=== PATIENT | female | born 1990 | race Caucasian/White ===

== ENCOUNTER 2024-02-04 06:04 | Emergency (ER) | payer OTHER, SELFPAY ==
[2024-02-04] VITALS (12 sets, daily range): BP systolic 108–125; BP diastolic 70–93; PULSE 91–122
--- NOTE | 2024-02-04 06:38 | ED.GENMED ---
History of Present Illness
<Leah Grewal DO, Resident - Last Filed: 02/04/24 11:09>
General
Chief Complaint: Dehydration Symptoms
Source: patient and records
Exam Limitations: none
Time Seen by Provider: 02/04/24 06:37
Nursing documentation reviewed up to this point in time: agreed with
History of Present Illness
History of Present Illness:
Ms. Micheline Juarez is a 33 yo female from [place] with a recent diarrheal illness presenting with feeling dehydrated. Stool sample on 01/28 positive for Vibrio cholera, E. coli, Vibrio sp., and Campylobacter jejuni. Per pt, CDC is aware. Suspects
oysters as source. Was given one dose of 1g azithromycin on 01/28. Diarrhea lasted for 8 days and is now resolved. Pt had 2-3 'non-diarrhea' bowel movements since. Traveled here 01/31 to visit parents. Pt reports palpitations, lightheadedness,
dizziness, headache, fatigue, sore throat x1 day, weakness, and b/l leg cramping. She denies CP, SOB, cough, abdominal pain, N/V, parasthesias.
Has been tolerating chicken noodle soup, crackers, gatorade, and liquid IV.
Past History
<Leah Grewal DO, Resident - Last Filed: 02/04/24 11:09>
Past History
ED Past Medical History: None
Review of Systems
<Leah Grewal DO, Resident - Last Filed: 02/04/24 11:09>
Review of Systems
Allergies reviewed?: Yes
All Other Systems: ROS reviewed and negative except as documented in HPI and ROS
Phy Exam
<Leah Grewal DO, Resident - Last Filed: 02/04/24 11:09>
General Physical Exam
General Presentation: well appearing
General age: appears stated age
General Skin: warm and dry
General Habitus: normal
General Mental: alert
General Hydration: appears well hydrated (good skin turgor, moist mucous membranes)
Cardiovascular Exam
Cardiovascular Exam: no edema, no gallop, no murmur, normal peripheral pulses and tachycardia
Heart Sounds: normal
Pulmonary Exam
Pulmonary Exam: lungs clear, no respiratory distress, no rales, no rhonchi, no wheezing and no cough
Gastrointestinal Exam
Gastrointestinal Exam: normal bowel sounds, soft, no organomegaly, no pulsatile mass and tender (periumbilical)
Neurological Exam
Neurological Exam: alert, oriented x3, no motor deficits and normal reflexs
Musculoskeletal Exam
Musculoskeletal Exam: no edema
Skin Exam
Skin Exam: normal color, warm/dry and no rash
Psychiatric Exam
Psychiatric Exam: normal mood/affect
Course
<Leah Grewal DO, Resident - Last Filed: 02/04/24 11:09>
Orders/Labs/Results
Orders:
Orders
02/04/24 06:18
EKG [Electrocardiogram (*1)] Urgent
Reason for Study: Palpitations
EKG- Treatment ONCE
02/04/24 06:56
UA Reflex to Culture [Urinalysis Reflex To Culture] Urgent
Date Specimen was Collected: 02/04/24
Time Specimen was Collected: 06:17
02/04/24 07:44
Orthostatic VS- Treatment ONCE
0.9% Sodium Chloride 1000 ml [Nss] 1,000 ml IV BOLUS
02/04/24 07:46
Complete Blood Count/No Diff Urgent
Comprehensive Metabolic Panel Urgent
02/04/24 08:41
0.9% Sodium Chloride 1000 ml [Nss] 1,000 ml IV BOLUS
02/04/24 10:13
Orthostatic Vital Signs As Directed
Orthostatic VS Frequency: Now
Abnormal Lab Results
02/04/24
07:46
WBC 12.3 H 10^3/uL
(4.8-10.8)
BUN 5 L mg/dl
(7-17)
02/04/24 07:46
02/04/24 07:46
Vital Signs
Initial and Last Documented VS:
Initial Vital Signs
Temp Pulse Resp BP Pulse Ox
100.1 F 130 18 125/86 97
02/04/24 06:08 02/04/24 06:08 02/04/24 06:08 02/04/24 06:08 02/04/24 06:08
Last Documented Vital Signs
Temp Pulse Resp BP Pulse Ox
98.1 F 86 17 117/86 99
02/04/24 08:52 02/04/24 10:30 02/04/24 10:30 02/04/24 10:21 02/04/24 10:30
<Orlando Thomas MD - Last Filed: 02/05/24 10:03>
Orders/Labs/Results
Orders:
Orders
02/04/24 06:18
EKG [Electrocardiogram (*1)] Urgent
Reason for Study: Palpitations
EKG- Treatment ONCE
02/04/24 06:56
UA Reflex to Culture [Urinalysis Reflex To Culture] Urgent
Date Specimen was Collected: 02/04/24
Time Specimen was Collected: 06:17
02/04/24 07:44
Orthostatic VS- Treatment ONCE
0.9% Sodium Chloride 1000 ml [Nss] 1,000 ml IV BOLUS
02/04/24 07:46
Complete Blood Count/No Diff Urgent
Comprehensive Metabolic Panel Urgent
02/04/24 08:41
0.9% Sodium Chloride 1000 ml [Nss] 1,000 ml IV BOLUS
02/04/24 10:13
Orthostatic Vital Signs As Directed
Orthostatic VS Frequency: Now
Abnormal Lab Results
02/04/24
07:46
WBC 12.3 H 10^3/uL
(4.8-10.8)
BUN 5 L mg/dl
(7-17)
02/04/24 07:46
02/04/24 07:46
Vital Signs
Initial and Last Documented VS:
Initial Vital Signs
Temp Pulse Resp BP Pulse Ox
100.1 F 130 18 125/86 97
02/04/24 06:08 02/04/24 06:08 02/04/24 06:08 02/04/24 06:08 02/04/24 06:08
Last Documented Vital Signs
Temp Pulse Resp BP Pulse Ox
98.1 F 86 17 117/86 99
02/04/24 08:52 02/04/24 10:30 02/04/24 10:30 02/04/24 10:21 02/04/24 10:30
<Leah Grewal DO, Resident - Last Filed: 02/04/24 11:09>
MDM/Problems Addressed
Differential Diagnosis Includes:
cardiac arrhythmia, anemia, hyponatremia, guillain-barre syndrome
MDM/Problems Addressed:
Ms. Micheline Juarez is a 33 yo female with a recently treated diarrheal illness presenting with feeling dehydrated.
Cardiac arrhythmia unlikely due to NSR on ECG.
Concern for anemia, hyponatremia is low due to Hb 14, Na 141.
Guillain-barre syndrome is less likely at this time due to preserved DTRs, muscle strength, and sensation.
Pt's symptoms improved with 2L normal saline. On arrival, she was tachycardic (130), but her heart rate has improved with IV fluids to 93 bpm.
<Leah Grewal DO, Resident - Last Filed: 02/04/24 11:09>
*Pulse Oximetry
Patient hypoxic: no
*EKG
Interpreted by ED Provider?: Yes
Interpretation: normal
Comparison EKG: no comparison EKG present
Heart Rate: 96
Rate: normal
Rhythm: sinus
QRS Pattern: normal QRS
Ischemia: no ischemia
*Pipeman Interpretation
Rate: tachycardiac
Heart Rate: 110
Rhythm: sinus
*Critical Care Note
Total Time (30-74mins, 75-104mins- exclusive of procedures): Not Applicable
Data Reviewed
Review of Other/Old Records Reveals: Testing
Source: patient
ED Attending Note
<Leah Grewal DO, Resident - Last Filed: 02/04/24 11:09>
-
Portions of this chart may have been created with voice recognition software.� Occasional wrong word or��sound alike� substitutions may have occurred due to the inherent limitations of voice recognition software.
<Orlando Thomas MD - Last Filed: 02/05/24 10:03>
ED Attending Note
Patient seen and examined by attending physician: Yes
I performed a history and physical exam of patient and discussed management with resident, I reviewed resident's note and agree with documented findings and plan of care.: Yes
ED Attending Note:
Pt presents to ED secondary to concern for dehydration, due to ongoing dizziness/weakness after stool study came back positive for vibrio and e.coli infection. Pt was give one dose of zithromax with resolution of diarrhea. Pt states that she has
tried to stay hydrated along with consumption of soup. Denies fever. Denies cp/sob. Denies headache. Denies blurred vision. Denies loss of sensation/weakness. Denies difficulty with ambulation.
General: well nourished female, in mild distress. afebrile. tachycardic.
Heent: nc/at. eomi
Lungs: cta.
Heart: tachycardic, no murmur
Abd: soft and nontender
Neuro: aao x 3. no focal neurological deficit.
Skin: warm to touch. no rash.
Psych: pleasant and cooperative.
History/exam consistent with likely mild dehydration due to recent lab confirmed infection. Pt with sig improvement after iv hydration. Pt will be discharged home in stable condition, to the care of her parents with recommendations to continue
hydration/oral intake at home, along with pcp f/u with any further concerns.
Discharge Plan
Departure
Patient Disposition: Home (Routine Discharge)
Date of Disposition: 02/04/24
Time of Disposition: 10:35
Patient with high blood pressure during this ER visit?: No
Condition: Good
Discharge Problem:
Dehydration symptoms
Instructions: Dehydration, Adult (DC)
Referrals:
PRIVATE,PHYSICIAN [Family Provider] -
Activity Restrictions/Additional Instructions:
Please follow up with your primary care provider if these symptoms continue.
If your symptoms worsen or you experience a change in your symptoms, please return to the ED.
Interventions
Interventions:
*Risk Screen - Suicide Last Done: 02/04/24 06:08
*General Assessment Last Done: 02/04/24 06:08
*Neglect/Abuse Screening Last Done: 02/04/24 06:08
ED- Fall Risk Assessment Last Done: 02/04/24 06:58
*ED COVID-19 Vaccine History Last Done: 02/04/24 06:08
*Nursing Disposition Last Done: 02/04/24 10:41
ED- Cardiac Assessment Last Done: 02/04/24 06:58
ED- Neurological Assessment Last Done: 02/04/24 06:58
ED- Pulmonary Assessment Last Done: 02/04/24 06:58
Discharge Date and Time
Discharge Date/Time: 02/04/24 10:48
Print Language: ARMENIAN
[2024-02-04] MEDS: NSS 1000 IV ×2 (07:48→08:48)
[2024-02-04 07:52] LABS: Hemoglobin 14.2 g/dL (12.0-16.0); Mean Corp Hgb Conc. 34.6 g/dL (33.0-37.0); Mean Corpuscular Volume 86.5 fL (81.0-99.0); Mean Platelet Volume 10.2 fL (7.4-10.4); Platelet Count 258 10^3/uL (130-400); Red Blood Cell Count 4.74 10^6/uL (4.20-5.40); Red Cell Dist. Width 11.9 % (11.5-14.5); White Blood Cell Count 12.3 10^3/uL (4.8-10.8)
[2024-02-04 07:57] LABS: Urine Albumin Negative (Neg - Trace); Urine Bilirubin Negative (Negative); Urine Character Clear (Clear); Urine Color Straw; Urine Glucose Negative (Negative); Urine Ketone Negative (Negative); Urine Leukocyte Negative (Negative); Urine Nitrite Negative (Negative); Urine Occult Blood Negative (Negative); Urine Specific Gravity 1.005 (<1.030); Urine Urobilinogen Negative (Neg - 1+); Urine pH 6.5 (5.0-9.0)
[2024-02-04 08:04] LABS: ALT (SGPT) 14 U/L (0-35); AST (SGOT) 20 U/L (14-36); Albumin 4.7 g/dl (3.5-5.0); Alkaline Phosphatase 72 U/L (38-126); Blood Urea Nitrogen 5 mg/dl (7-17); Calcium 10.2 mg/dl (8.4-10.2); Carbon Dioxide 24 mmol/L (22-30); Chloride 103 mmol/L (98-107); Glucose 99 mg/dl (70-99); Potassium 4.4 mmol/L (3.5-5.1); Sodium 141 mmol/L (135-145); Total Bilirubin 0.6 mg/dl (0.2-1.3); Total Protein 7.2 g/dl (6.3-8.2); eGFR > 60.00
== END 2024-02-04 10:48 | disposition home or self-care (01) ==
LOC: EMR 06:04
PROVIDERS: Student in an Organized Health Care Education/Training Program; EMERGENCY PHYSICIAN Emergency Medicine
DX: E86.0 Dehydration (principal); R00.0 Tachycardia, unspecified; R42 Dizziness and giddiness; R53.1 Weakness; R19.7 Diarrhea, unspecified; R00.2 Palpitations; R25.2 Cramp and spasm; A00.9 Cholera, unspecified; B96.20 Unspecified Escherichia coli [E. coli] as the cause of diseases classified elsewhere; J02.9 Acute pharyngitis, unspecified
CPT/HCPCS: 99284; 96360; 96361; 80053; 81003; 85027; 93005